=== PATIENT | female | born 1995 | race African-American/Black ===

== ENCOUNTER 2018-05-29 06:20 | Inpatient (IN) ==
[2018-05-29 06:44] LABS: URINE SOURCE VOIDED
[2018-05-29] MEDS ORDERED: LR 1,000 ML IV ONE (06:48)
[2018-05-29 06:54] LABS: BILIRUBIN URINE NEGATIVE (NEGATIVE); BLOOD URINE NEGATIVE (NEGATIVE); CLARITY CLEAR (CLEAR); COLOR YELLOW; GLUCOSE URINE NEGATIVE (NEGATIVE); KETONE URINE NEGATIVE (NEGATIVE); LEUKOCYTES URINE NEGATIVE (NEGATIVE); NITRITE URINE NEGATIVE (NEGATIVE); PROTEIN URINE NEGATIVE (NEGATIVE); SP GRAVITY URINE 1.015; UROBILINOGEN URINE NORMAL
[2018-05-29 07:19] LABS: UR AMPHETAMINES QUAL NONE DETECTED (NONE DETECT); UR BARBITUATES QUAL NONE DETECTED (NONE DETECT); UR BENZODIAZEPIN QUAL NONE DETECTED (NONE DETECT); UR CANNABINOIDS QUAL NONE DETECTED (NONE DETECT); UR COCAINE QUAL PRESUMPTIVE POSITIVE (NONE DETECT); UR METHADONE QUAL NONE DETECTED (NONE DETECT); UR METHAMPHETAMINE QUAL NONE DETECTED (NONE DETECT); UR OPIATES QUAL NONE DETECTED (NONE DETECT); UR OXYCODONE QUAL NONE DETECTED (NONE DETECT); UR PCP QUAL NONE DETECTED (NONE DETECT); UR PROPOXYPHENE QUAL NONE DETECTED (NONE DETECT); UR TCA QUAL NONE DETECTED (NONE DETECT)
[2018-05-29] MEDS ORDERED: LR 1,000 ML IV SCH ×3 (07:45→12:30)
[2018-05-29] MEDS ORDERED: STADOL IV ONE (09:05)
[2018-05-29] MEDS ORDERED: ZOFRAN IV ONE (09:06)
--- NOTE | 2018-05-29 09:19 | Diag Imaging Result Doc PS360 ---
EXAM: US OBS COMPLETE > 14 WKS - 05/29/2018 HISTORY: non-reassuring tracing TECHNIQUE: Obstetrical ultrasound greater than 14 weeks limited COMPARISON: 04/18/2018 FINDINGS: There is a live intrauterine in cephalic presentation. The estimated gestational age based on parameters from today's exam is 39 weeks three days +/- 18 days. The estimated weight is 3891 +/- 537 g. The heart rate is 138 bpm. The placenta is fundal in location and is unremarkable. The amniotic fluid index measures 19.39 cm. There are no discrete complications identified. IMPRESSION: Live intrauterine in cephalic presentation, as detailed above. Electronically signed by Cralos Robledo 05/29/2018 9:17 AM
[2018-05-29] MEDS ORDERED: KEFZOL 1 GM/D5W 1 GM/50 ML IVPB IV PRN (09:58)
[2018-05-29] MEDS ORDERED: BICITRA PO ONE (10:00)
[2018-05-29 10:18] LABS: BASO# 0.03 X1000 (0.0-0.2); BASO% 0.3 % (0.0-0.8); EOS# 0.14 X1000 (0.0-0.7); EOS% 1.4 % (0.0-10.0); HEMATOCRIT 38.8 % (37.0-47.0); HEMOGLOBIN 12.9 g/dL (12.0-16.0); IMM GRAN# 0.03 X1000 (0.0-0.04); IMM GRAN% 0.3 % (0.0-0.5); LYMPH# 1.55 X1000 (1.2-3.4); LYMPH% 15.7 % (20.5-51.1); MCH 29.7 PG (27-31); MCHC 33.2 g/dL (33-37); MCV 89.2 FL (81-99); MONO# 0.87 X1000 (0.11-0.59); MONO% 8.8 % (1.7-9.3); MPV 11.8 FL (7.4-10.4); NEUT# 7.28 X1000 (1.4-6.5); NEUT% 73.5 % (42.2-75.2); PLT 213 X1000 (130-400); RBC 4.35 XMIL (4.2-5.4); RDW 13.2 % (11.5-14.5)
--- NOTE | 2018-05-29 10:26 | HISTORY AND PHYSICAL ---
CHIEF COMPLAINT: Contractions. HISTORY OF PRESENT ILLNESS: Ms. Herbert is a 23-year-old, 2, para 1, at 38 weeks and 5 days by a [address] Holman with history of prior for malpresentation, who presented with complaint of losing mucus plug and onset of contractions. Reports active baby. No vaginal bleeding. No loss of fluid. Patient reports she received care in [place] starting at 12 weeks up until she moved to [place]. Records are not available. We will try to get, but likely will not be available by the time of . PAST MEDICAL HISTORY: Denies. PAST SURGICAL HISTORY: x1. ALLERGIES: No known drug allergies. SOCIAL HISTORY: 3 to 4 cigarettes per day. No alcohol. The patient admits to cocaine use, and her UDS was positive for cocaine. Reports last use was a couple of days ago. FAMILY HISTORY: Noncontributory. 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 PHYSICAL EXAMINATION: VITAL SIGNS: Temperature 96.8 degrees, heart rate 85, respirations 18, and blood pressure 130/86. GENERAL: Alert and oriented. No acute distress. PULMONARY: Clear to auscultation bilaterally. CV: Regular rate and rhythm. ABDOMEN: Soft, nondistended. Gravid with palpable contractions. EXTREMITIES: No clubbing, cyanosis, or edema. PELVIC: Cervix was closed on arrival and is now changed to 2 cm. heart tones is 140s. No accelerations, no decelerations. Minimal variability. [place] irregular q. 3 to 4 minutes. BPP 8 out of 8. LABORATORY: Admission labs pending. Urinalysis within normal limits. Urine drug screen is presumptive positive for cocaine. ASSESSMENT AND PLAN: Ms. Herbert is a 23-year-old 2, para 1, at 38 weeks and 5 days by 32 week ultrasound with history of prior , now with cervical change. Risks, benefits, alternatives, and indications were discussed. Patient wished to proceed with repeat section. PLAN: 1. Proceed with repeat low transverse section. 2. Patient desires future fertility. cc: Pierre Kc MD
[2018-05-29] MEDS ORDERED: FENTANYL ONE (10:50)
[2018-05-29] MEDS ORDERED: DIPRIVAN 1% ONE (10:53)
[2018-05-29] MEDS ORDERED: PITOCIN ONE (11:03)
[2018-05-29] MEDS ORDERED: TORADOL ONE (11:07)
[2018-05-29] MEDS ORDERED: ZOFRAN ONE (11:07)
[2018-05-29] MEDS ORDERED: DEMEROL PO PRN ×2 (11:34)
[2018-05-29] MEDS ORDERED: DEMEROL IM PRN (11:34)
[2018-05-29] MEDS ORDERED: MOTRIN PO PRN (11:34)
[2018-05-29] MEDS ORDERED: M-M-R II VACCINE SUBQ ONE (11:34)
[2018-05-29] MEDS ORDERED: PITOCIN IM PRN (11:34)
[2018-05-29] MEDS ORDERED: BOOSTRIX VACCINE IM ONE (11:34)
[2018-05-29] MEDS ORDERED: AMBIEN PO PRN (11:34)
[2018-05-29] MEDS ORDERED: PHENERGAN IM PRN (11:34)
[2018-05-29] MEDS ORDERED: DULCOLAX PR PRN (11:34)
[2018-05-29] MEDS ORDERED: PITOCIN 20 UNITS/NS 20 UNITS/1,000 ML IV.SOLN IV ONE (11:34)
[2018-05-29] MEDS ORDERED: HYDROXYZINE IM PRN (11:34)
[2018-05-29] MEDS ORDERED: MYLICON PO PRN (11:34)
[2018-05-29] MEDS ORDERED: ATARAX PO PRN (11:34)
[2018-05-29] MEDS ORDERED: ZOFRAN IV PRN (12:30)
[2018-05-29] MEDS ORDERED: BENADRYL IV PRN (12:30)
[2018-05-29] MEDS ORDERED: NARCAN IV PRN (12:30)
--- NOTE | 2018-05-29 12:33 | OPERATIVE NOTE ---
PROCEDURE DATE: 05/29/2018 PREOPERATIVE DIAGNOSES: 1. A thirty-eight week and 5 day gestation. 2. Prior x1. 3. Spontaneous onset of labor. POSTOPERATIVE DIAGNOSES: 1. A thirty-eight week and 5 day gestation. 2. Prior x1. 3. Spontaneous onset of labor. PROCEDURE: Repeat low transverse section without extension. SURGEON: Pierre Kc MD. ANESTHESIA: Spinal. FINDINGS: 1. Normal tubes and ovaries bilaterally. 2. female, KM position. 3. Moderate meconium. 4. 9 and 10 Apgars. [facility]. 5. Hemostasis. 6. Correct sponge, needle and instrument counts x3. COMPLICATIONS: None. ESTIMATED BLOOD LOSS: 600 mL. SPECIMENS: Placenta. DRAINS: [place] to gravity with clear urine. COMPLICATIONS: None. DISPOSITION: Transferred to recovery room n stable condition. STATEMENT OF MEDICAL NECESSITY: Mrs. Herbert is a 23-year-old 2, para 1, at 38 weeks and 5 days with a history of prior x1, who presented to Labor and Delivery complaining of contractions. The patient changed her cervix from closed to 2 cm and completely effaced. Risks, benefits, alternatives, and indications were discussed. Patient wished to proceed with repeat section. DESCRIPTION OF OPERATION: After obtaining informed consent, patient was taken to the operating room. Satisfactory spinal anesthesia was established as per above. She received antibiotics for prophylaxis prior to skin incision. She was sterilely prepped and draped in the usual fashion. A Pfannenstiel skin incision was made using the knife. Subcutaneous tissue was transected using Bovie cautery, ensuring hemostasis along the way. The fascia was incised in the midline using Bovie cautery. The fascial incision was extended to the left and to the right after elevation. Sharp dissection using Cox scissors, ensuring all nerves and vessels were well out of the operative field. Two covers were then placed. Superior fascial leaf was elevated and dissected free of the rectus muscles using Bovie cautery. Two Shelbi's were then placed on the inferior fascial leaf which was elevated and dissected free of the rectus muscles using Cox scissors. Rectus muscles were in the midline. The peritoneum was entered bluntly. Bladder blade was placed. A bladder flap was created using Metzenbaum scissors. The bladder blade was replaced and with the bladder wall off operative field, a low transverse hysterotomy was made. female KM position. Moderate meconium was delivered. She was bulb suctioned at the hysterotomy. The shoulders were delivered. The cord was clamped. She was passed off to the awaiting nurse, 9 and 10 Apgars to the nursery. The placenta was manually extracted. The uterus was externalized, wrapped in a moist laparotomy sponge. A dry curette was performed with a dry laparotomy sponge. The hysterotomy was closed with a #1 chromic in a running locking fashion. Hemostasis was noted. Uterus placed back in the abdominopelvic cavity. The gutters were copiously irrigated with warm saline. Bladder blade was replaced. The hysterotomy again inspected, and noted to be hemostatic. Peritoneum was closed with 2-0 Vicryl in a running fashion. Rectus muscles were inspected and noted to be hemostatic. The fascia was closed with a 0 Vicryl in a running fashion. Subcutaneous tissues were irrigated with warm saline. Hemostasis was achieved using Bovie cautery. The skin was closed using leoncio. There were no anesthetic or operative complications. The patient was transferred to recovery room in stable condition. cc: Pierre Kc MD [facility]
[2018-05-29] MEDS: MORPHINE PCA IV PRN ×2 (13:25→17:07)
[2018-05-29] MEDS ORDERED: MORPHINE IV ONE (14:48)
[2018-05-29] MEDS: OFIRMEV 1000 MG/ISOTONIC SOLN 1,000 MG/100 ML BOTTLE IV PRN ×2 (15:17→20:58)
[2018-05-29] MEDS: MYLICON PO SCH ×2 (15:19→20:57)
[2018-05-29] MEDS: TORADOL IV SCH (17:15)
[2018-05-29] MEDS: PITOCIN 10 UNITS/NS 1,000 ML IV SCH (20:57)
[2018-05-29] MEDS ORDERED: PERICOLACE PO SCH (21:00)
[2018-05-30] MEDS: MYLICON PO SCH ×4 (00:34→19:17)
[2018-05-30] MEDS: TORADOL IV SCH ×2 (00:37→06:05)
[2018-05-30] MEDS: MORPHINE PCA IV PRN (02:06)
[2018-05-30] MEDS: PITOCIN 10 UNITS/NS 1,000 ML IV SCH (04:32)
[2018-05-30] MEDS: OFIRMEV 1000 MG/ISOTONIC SOLN 1,000 MG/100 ML BOTTLE IV PRN (07:22)
--- NOTE | 2018-05-30 08:24 | OB/GYN PROGRESS NOTE ---
Progress Note OB - . OB Progress Note: Vital Signs - 24 hr 05/29/18 11:35 05/29/18 11:45 05/29/18 11:55 Temperature 96.8 F L Pulse Rate 59 L 75 58 L Respiratory Rate 20 20 20 Blood Pressure 118/65 Blood Pressure [Left Arm] 118/65 118/67 111/68 O2 Sat by Pulse Oximetry 98 100 100 05/29/18 12:00 05/29/18 12:10 05/29/18 12:20 Temperature Pulse Rate 65 64 61 Respiratory Rate 24 20 20 Blood Pressure Blood Pressure [Left Arm] 110/65 104/60 116/69 O2 Sat by Pulse Oximetry 100 100 100 05/29/18 12:30 05/29/18 19:49 05/29/18 20:13 Temperature 97.2 F L Pulse Rate 60 76 Respiratory Rate 20 18 Blood Pressure 112/61 121/81 Blood Pressure [Left Arm] 112/61 O2 Sat by Pulse Oximetry 95 98 05/30/18 00:31 05/30/18 05:56 05/30/18 07:00 Temperature 97.0 F L 97.5 F L 97.8 F Pulse Rate 57 L 69 86 Respiratory Rate 18 20 Blood Pressure 125/55 90/55 111/56 Blood Pressure [Left Arm] O2 Sat by Pulse Oximetry 100 Laboratory Results - last 24 hr 05/29/18 05/29/18 05/29/18 07:00 07:00 07:00 WBC 9.90 RBC 4.35 Hgb 12.9 Hct 38.8 MCV 89.2 MCH 29.7 MCHC 33.2 RDW Std Deviation 13.2 Plt Count 213 MPV 11.8 H Immature Gran % (Auto) 0.3 Neut % (Auto) 73.5 Lymph % (Auto) 15.7 L [place] % (Auto) 8.8 Eos % (Auto) 1.4 Baso % (Auto) 0.3 Immature Gran # (Auto) 0.03 Neut # (Auto) 7.28 H Lymph # (Auto) 1.55 [place] # (Auto) 0.87 H Eos # (Auto) 0.14 Baso # (Auto) 0.03 RPR NON-REACTIVE Blood Type O POSITIVE Antibody Screen NEGATIVE note Patient doing well this morning. Lochia less than menses. ambulating well ROS otherwise negative AFVSS General: AAOx3 in NAD HEENT: NCAT CV: S1 S2 normal Lungs: clear Abd: fundus firm. positive bowel sounds. Incision: dressing clean dry and intact Ext: no C/C/E A/P Post / post op day #1 s/p repeat c section - doing well this morning, continue current care Drug use- cocaine positive - DHR consult requested
[2018-05-30] MEDS: PERCOCET-5 PO PRN ×2 (09:35→13:59)
[2018-05-30] MEDS ORDERED: LR 1,000 ML IV SCH (11:34)
[2018-05-30 15:29] VITALS: BP 130/85
--- NOTE | 2018-05-30 19:43 | OB/GYN PROGRESS NOTE ---
Progress Note OB - . OB Progress Note: Vital Signs - 24 hr 05/29/18 19:49 05/29/18 20:13 05/30/18 00:31 Temperature 97.2 F L 97.0 F L Pulse Rate 76 57 L Respiratory Rate 18 18 Blood Pressure 121/81 125/55 O2 Sat by Pulse Oximetry 98 05/30/18 05:56 05/30/18 07:00 05/30/18 08:00 Temperature 97.5 F L 97.8 F Pulse Rate 69 86 78 Respiratory Rate 20 20 Blood Pressure 90/55 111/56 O2 Sat by Pulse Oximetry 100 99 05/30/18 11:27 05/30/18 15:28 Temperature 96.8 F L 98.1 F Pulse Rate 66 58 L Respiratory Rate 20 20 Blood Pressure 123/67 130/85 O2 Sat by Pulse Oximetry 98 97 ELOPEMENT NOTE Patient left the hospital about 5:30 PM and has not returned. Elopement - Discharged as eloped patient.
== END 2018-05-30 19:30 | disposition left against medical advice (07) | DRG 787 ==
LOC: P.OPLD 06:20 → P.LD 06:22 → UNDODISIN 05-30 19:48
PROVIDERS: ADMIT Obstetrics & Gynecology; ATTEND Obstetrics & Gynecology
CPT/HCPCS: 59025; 76805; 80104; 80301; 80305; 81003; 85025; 86592; 86850; 86900; 86901; 94761; 94799; A9270; G0431; G0434; G0477; J0131; J0690; J1885; J2270; J2275; J2405; J2590; J3010; J7120; Q9974